=== PATIENT | male | born 1975 ===

== ENCOUNTER 2017-03-19 06:06 | Emergency (ER) | payer OTHER, MEDICAID ==
[2017-03-19 06:22] VITALS: BP 114/79
--- NOTE | 2017-03-19 07:10 | XRay Report ---
FINAL REPORT EXAM: XR FOOT 2V LT HISTORY: swollen Left side of foot ankle/foot TECHNIQUE: AP and lateral views of the left foot were submitted. FINDINGS: There is no evidence of fracture or dislocation. The soft tissues appear well maintained. There is a small to moderate sized plantar calcaneal spur. IMPRESSION: No evidence acute fracture. Small to moderate sized plantar calcaneal spur.
[2017-03-19] MEDS ORDERED: ULTRAM PO ONE (08:44)
[2017-03-19] MEDS ORDERED: DELTASONE PO ONE (08:44)
--- NOTE | 2017-03-19 09:04 | Emergency Department Report ---
ED Lower Extremity HPI - General Chief Complaint: Extremity Injury, Lower Stated Complaint: FOOT PAIN Time Seen by Provider: 03/19/17 08:38 Source: patient, family Mode of arrival: Ambulatory Limitations: Language Barrier - History of Present Illness Initial Comments: Patient is a 42-year-old male history of hypertension who presents for left foot and ankle pain; onset 3 days ago patient denies fall or injury or trauma patient states pain 410 aching soreness pains exacerbated by ambulation weight bearing patient states swelling and redness there is no history of gout or arthritis. MD Complaint: foot injury Onset/Timin -: days(s) Injury: Foot: Left Type of Injury: other (denied injury ) Place: home Severity: moderate Severity scale (0 -10): 4 Improves With: nothing Worsens With: weight bearing, movement, palpation Context: other (none) Other Symptoms: other (none) Associated Symptoms: swelling, able to partially bear weight. denies: snap/pop sensation, numbness, tingling - Related Data Previous Rx's Medication Instructions Recorded Last Taken Type Cyclobenzaprine [Flexeril] 10 mg PO BID PRN #20 tablet 03/19/17 Unknown Rx Naproxen [Naprosyn] 500 mg PO BID PRN #60 tablet 03/19/17 Unknown Rx Allergies Allergy/AdvReac Type Severity Reaction Status Date / Time No Known Allergies Allergy Unverified 03/19/17 06:15 ED Review of Systems ROS: Stated complaint: FOOT PAIN Other details as noted in HPI Constitutional: denies: chills, fever Eyes: denies: eye pain, eye discharge, vision change ENT: denies: ear pain, throat pain Respiratory: denies: cough, shortness of breath, wheezing Cardiovascular: denies: chest pain, palpitations Endocrine: no symptoms reported Gastrointestinal: denies: abdominal pain, nausea, diarrhea Genitourinary: denies: urgency, dysuria Musculoskeletal: myalgia Skin: denies: rash, lesions Neurological: denies: headache, weakness, paresthesias Psychiatric: denies: anxiety, depression Hematological/Lymphatic: denies: easy bleeding, easy bruising ED Past Medical Hx - Past Medical History Previous Medical History?: Yes Hx Hypertension: Yes - Surgical History Past Surgical History?: No - Social History Smoking Status: Never Smoker Substance Use Type: None - Medications Home Medications: Home Medications Medication Instructions Recorded Confirmed Last Taken Type Cyclobenzaprine [Flexeril] 10 mg PO BID PRN #20 tablet 03/19/17 Unknown Rx Naproxen [Naprosyn] 500 mg PO BID PRN #60 tablet 03/19/17 Unknown Rx ED Physical Exam - General Limitations: Language Barrier General appearance: alert, in no apparent distress - Head Head exam: Present: atraumatic, normocephalic - Eye Eye exam: Present: normal appearance - ENT ENT exam: Present: mucous membranes moist - Neck Neck exam: Present: normal inspection - Respiratory Respiratory exam: Present: normal lung sounds bilaterally. Absent: respiratory distress - Cardiovascular Cardiovascular Exam: Present: regular rate, normal rhythm. Absent: systolic murmur, diastolic murmur, rubs, gallop - GI/Abdominal GI/Abdominal exam: Present: soft, normal bowel sounds - Rectal Rectal exam: Present: deferred - Extremities Exam Extremities exam: Present: normal inspection, full ROM, tenderness (left lateral ankel and heel ), normal capillary refill. Absent: pedal edema, joint swelling, calf tenderness - Expanded Lower Extremity Exam Left Foot/Toe exam: Present: normal inspection, full ROM, tenderness (left heel ), erythema, calcaneal tenderness. Absent: swelling, abrasion, laceration, ecchymosis, deformity, dislocation, amputation, puncture wound, foreign body, tenderness at base of 5th metatarsal, nail avulsion Neuro vascular tendon exam: Present: no vascular compromise. Absent: pulse deficit, abnormal cap refill, motor deficit, sensory deficit, tendon deficit, extremity cold to touch, pallor, abnormal 2-point discrimination, decreased fine /light touch, foot drop, peroneal nerve deficit, significant pain with passive ROM of distal joint Gait: Positive: observed and limited by pain - Back Exam Back exam: Present: normal inspection, full ROM - Neurological Exam Neurological exam: Present: alert, oriented X3, CN II-XII intact, normal gait, reflexes normal. Absent: motor sensory deficit - Psychiatric Psychiatric exam: Present: normal affect, normal mood - Skin Skin exam: Present: warm, dry, intact, normal color. Absent: rash ED Course Vital Signs 03/19/17 06:15 Temperature 97.8 F Pulse Rate 74 Respiratory 18 Rate Blood Pressure 114/79 O2 Sat by Pulse 97 Oximetry ED Lower Extremity MDM - Radiology Data Radiology results: report reviewed, image reviewed moderate sized plantar calcaneal spur no fracture - Medical Decision Making Patient is a 42-year-old male history of hypertension who presents for left foot and ankle pain; onset 3 days ago patient denies fall or injury or trauma patient states pain 410 aching soreness pains exacerbated by ambulation weight bearing patient states swelling and redness there is no history of gout or arthritis. 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 ED Disposition Clinical Impression: Plantar fasciitis, left Heel spur Qualifiers: Laterality: left Qualified Code(s): M77.32 - Calcaneal spur, left foot Disposition: DC- TO HOME OR SELFCARE Is pt being admited?: No Does the pt Need Aspirin: No Condition: Good Instructions: Plantar Fasciitis (ED) Prescriptions: Cyclobenzaprine [Flexeril] 10 mg PO BID PRN #20 tablet PRN Reason: Muscle Spasm Naproxen [Naprosyn] 500 mg PO BID PRN #60 tablet PRN Reason: pain Referrals: JACKIE CHRISTIANSON MD [Primary Care Provider] - 3-5 Days Forms: Work/School Release Form(ED) Time of Disposition: 09:15
== END 2017-03-19 09:21 | disposition home or self-care (01) ==
LOC: ED 06:06
DX: M72.2 Plantar fascial fibromatosis (principal); M77.32 Calcaneal spur, left foot; I10 Essential (primary) hypertension
CPT/HCPCS: 73620; 99283; J7512